=== PATIENT | male | born 1940 | race Caucasian/White ===

== ENCOUNTER → 2016-06-30 | Outpatient (CLI) | payer MEDICARE, BC ==
[~2016-06-30] MED LIST: ASPIRIN (CHILDR81 MG; ASPIRIN325 MG PO; AVODART0.5 MG PO; COQ10-VIT E 201 EACH PO; CPAP INH; DAILY MULTIPLE1 EAC1 PO; EPITOL200 MG PO; FLOMAX0.4 MG PO; LASIX20 MG PO; LIPITOR40 MG PO; MULTI VITAMIN1 EACH; SOTALOL80 MG PO; TEGRETOL100 MG; VITAMIN D1000 UNIT PO; ZESTRIL2.5 MG PO; ZOLOFT50 MG PO
== END | disposition disaster alternative care site (69) ==
LOC: GRAD 09:08
DX: C64.9 Malignant neoplasm of unspecified kidney, except renal pelvis (principal)

== ENCOUNTER 2016-12-20 04:52 | Emergency (ER) | payer MEDICARE, BC ==
--- NOTE | ~2016-12-20 | ER ---
PATIENT'S NAME: DANII STRICKLAND [facility] AGE: 76 Y [address] ROOM: [place] [address] LOCATION: [facility] ADMIT DATE: 12/20/2016 ER/Outpatient Report DISCHARGE DATE: 12/20/2016 FAMILY PHYSICIAN: PHYSICIAN, NO ATTENDING PHYSICIAN: Benito Fortune Time of Arrival: 0452 hours. Time of Evaluation: 0452 hours. CHIEF COMPLAINT: Sore throat, drainage. HISTORY OF PRESENT ILLNESS: The patient is a 76-year-old male, who presents to the emergency department today with a chief complaint of sore throat, drainage. He has also had a cough. He felt some troubles breathing earlier this morning. He felt like the drainage was significantly worse. It is a nonproductive cough. He does report some pain in his chest when he coughs. He denies fevers or chills. No nausea or vomiting. No diarrhea or constipation. No headache. No abdominal pain. No diarrhea or constipation. PAST MEDICAL HISTORY: Bipolar, hypertension, obstructive sleep apnea, seizures, chronic kidney disease stage 3. PAST SURGICAL HISTORY: Right foot, kidney. SOCIAL HISTORY: The patient is . He denies any tobacco, alcohol, or illicit drug use. ALLERGIES: PENICILLIN. MEDICATIONS: Please see list. PRIMARY CARE DOCTOR: Family Practice. REVIEW OF SYSTEMS: All systems are reviewed by myself and are negative with the exception of those discussed in the HPI and past medical history. PHYSICAL EXAMINATION: PATIENT'S NAME: DANII STRICKLAND [facility] AGE: 76 Y [address] ROOM: [place] [address] LOCATION: [facility] ADMIT DATE: 12/20/2016 ER/Outpatient Report DISCHARGE DATE: 12/20/2016 FAMILY PHYSICIAN: PHYSICIAN, NO ATTENDING PHYSICIAN: Benito Fortune VITAL SIGNS: Weight 80.7 kg, blood pressure 179/81, pulse 60, respiratory rate 20, temperature 98.6, oxygen saturation 97% on room air. GENERAL: The patient is a 76-year-old male, who appears stated age, in no acute distress at this time. HEENT: Head: Normocephalic, atraumatic. Pupils are equal, round, and reactive to light and accommodation. Extraocular Motions are intact. Nares with clear discharge bilaterally. Oropharynx is with posterior pharyngeal erythema. There are no tonsillar exudates. TMs are clear. NECK: Supple. There is no nuchal rigidity. CARDIOVASCULAR: Regular rate and rhythm. No murmurs, rubs, or gallops. LUNGS: Clear to auscultation bilaterally. No wheezes, rales, or rhonchi. ABDOMEN: Soft, nontender, and nondistended. No rebound, rigidity, or guarding. MUSCULOSKELETAL: The patient moves all 4 extremities. SKIN: Warm and dry. There are no rashes or lesions noted. LABORATORY DATA AND X-RAYS: EKG is obtained, is interpreted by myself at 0507 hours shows sinus rhythm with a rate of 60, normal axis, normal interval. No ST elevation or ST depression. T-wave inversions in III and aVF, these are improved from previous EKGs, which had T-wave inversions in V3, V4, V5, and V6 as well. Two- view chest x-ray shows no acute process. CBC is normal. Coags are normal. CMP is unremarkable except for creatinine of 1.4. LFTs are normal. Magnesium is normal. Cardiac enzymes are normal. ProBNP is normal. IMPRESSION: 1. Pharyngitis. 2. Cough. 3. Initial visit. EMERGENCY DEPARTMENT COURSE: The patient was brought back to the examination room. Seen and evaluated by myself. History and physical performed as described above. Labs and imaging are obtained as described above. The patient was given 1 g of Rocephin IM as well as 10 mg of dexamethasone p.o. His symptoms do appear consistent with likely viral pharyngitis, however, with the patient's comorbidities, I did elect to cover the patient with antibiotics with Rocephin and Keflex. I have discussed I would recommend following up with primary care doctor in 2 to 3 days. I have discussed return to care instructions including any worsening symptoms or any other concerns to return to the emergency department as soon as possible. The patient is agreeable without further questions at this time. DISPOSITION: The patient discharged home in good condition. PATIENT'S NAME: DANII STRICKLAND [facility] AGE: 76 Y [address] ROOM: [place] [address] LOCATION: ED ADMIT DATE: 12/20/2016 ER/Outpatient Report DISCHARGE DATE: 12/20/2016 FAMILY PHYSICIAN: YON WEBSTER ATTENDING PHYSICIAN: Benito Fortune DO FARHAT LOCKWOOD/pamelal /[id number] d: 12/21/16 0124 t: 12/22/16 0549, OUTPATIENT REPORT
[2016-12-20 05:18] LABS: BASOPHIL % 0.4 %; EOSINOPHIL # 0.4 K/uL (0.0-0.5); EOSINOPHIL % 3.3 %; HEMATOCRIT 40.3 % (37.0-53.0); HEMOGLOBIN 14.1 g/dL (11.0-16.0); IMMATURE GRANULOCYTE % 0.3 %; LYMPHOCYTE # 0.8 K/uL (0.8-4.0); LYMPHOCYTE % 7.5 %; MCH 33.3 pg (27.0-34.0); MCV 95.3 fl (83.0-98.0); MONOCYTE # 0.7 K/uL (0.0-1.0); MONOCYTE % 6.5 %; MPV 9.3 fl (9.4-12.4); NEUTROPHIL # (ANC) 8.7 K/uL (1.4-9.0); NRBC % 0 /100WBC (0-0.00); PLATELET COUNT 194 K/uL (150-450); RBC 4.23 M/uL (3.50-5.50); WBC 10.6 K/uL (4.0-11.0)
[2016-12-20 05:27] LABS: INR - (THERAPEUTIC) 0.94 (0.92-1.07); PROTIME 9.9 SECONDS (9.8-11.4); PTT 26 SECONDS (25-32)
[2016-12-20 05:38] LABS: ALBUMIN 3.4 gm/dL (3.5-5.0); ALK PHOS 118 IU/L (33-138); ALT 22 IU/L (12-78); ANION GAP 9.6 (10.0-19.0); AST 9 IU/L (10-40); BLOOD UREA NITROGEN 23 mg/dL (6-24); CHLORIDE 111 mMol/L (96-110); CO2 25 mMol/L (22-32); CPK 60 IU/L (35-332); CREATININE 1.4 mg/dL (0.6-1.3); MAGNESIUM 2.4 mg/dL (1.8-2.6); POTASSIUM 4.6 mMol/L (3.7-5.1); SODIUM 141 mMol/L (135-145); TOTAL BILIRUBIN 0.3 mg/dL (0.0-1.5); TOTAL PROTEIN 6.8 g/dL (6.0-8.4)
== END 2016-12-20 06:37 | disposition disaster alternative care site (69) ==
LOC: GMED 04:52
PROVIDERS: Emergency Medicine
DX: J02.9 Acute pharyngitis, unspecified (principal); I12.9 Hypertensive chronic kidney disease with stage 1 through stage 4 chronic kidney disease, or unspecified chronic kidney disease; N18.3 Chronic kidney disease, stage 3 (moderate); F31.9 Bipolar disorder, unspecified; G47.33 Obstructive sleep apnea (adult) (pediatric); Z88.0 Allergy status to penicillin; Z98.890 Other specified postprocedural states; Z79.899 Other long term (current) drug therapy
CPT/HCPCS: J0696

== ENCOUNTER → 2016-12-21 | Outpatient (CLI) | payer MEDICARE, BC | END | disposition disaster alternative care site (69) | LOC: GAMB 21:46 | DX: J02.9 Acute pharyngitis, unspecified (principal); I10 Essential (primary) hypertension; C64.9 Malignant neoplasm of unspecified kidney, except renal pelvis; G40.909 Epilepsy, unspecified, not intractable, without status epilepticus; Z85.528 Personal history of other malignant neoplasm of kidney; Z95.0 Presence of cardiac pacemaker; Z79.899 Other long term (current) drug therapy; Z88.0 Allergy status to penicillin ==